=== PATIENT | male | born 1940 | race Caucasian/White ===

== ENCOUNTER 2016-12-15 18:53 | Emergency (ER) | payer OTHER, BC ==
[~2016-12-15] VITALS: Ht 180.3 cm; Wt 97.5 kg
[~2016-12-15 18:53] MED LIST: ATIVAN2 MG PO; COUMADIN5 MG PO; DIOVAN160 MG PO; FORTAMET1000 M1 PO; GLUCOPHAGE1000 MG PO; LO-DOSE ASPIRIN81 M1 PO; NEXIUM40 MG PO; NORVASC2.5 MG PO; PRAVACHOL40 MG PO; TOPROL XL100 MG PO; TOPROL XL50 MG PO
[2016-12-15 19:57] VITALS: BP 154/88
== END 2016-12-15 19:59 | disposition home or self-care (01) ==
LOC: EME 18:53
DX: S60.222A Contusion of left hand, initial encounter (principal); W22.8XXA Striking against or struck by other objects, initial encounter; Z87.891 Personal history of nicotine dependence
CPT/HCPCS: 73130; 99281; 99283

== ENCOUNTER 2017-12-20 07:00 | Day surgery (SDC) | payer OTHER, BC ==
[~2017-12-20] VITALS: Ht 154.9 cm; Wt 90.0 kg
[~2017-12-20 07:00] MED LIST changes: +PRAVACHOL80 MG PO
[2017-12-20 07:40] VITALS: BP 153/99
[2017-12-20 13:40] VITALS: BP 164/88
[2017-12-20 14:33] VITALS: BP 165/88
== END 2017-12-20 14:40 | disposition home or self-care (01) ==
LOC: SDC 07:00
PROVIDERS: Podiatrist Foot & Ankle Surgery
PROC: 0LU Tendons, Supplement (ICD-10-PCS; principal; 2017-12-20)
DX: M66.262 Spontaneous rupture of extensor tendons, left lower leg (principal); M76.812 Anterior tibial syndrome, left leg; M1A.9XX0 Chronic gout, unspecified, without tophus (tophi); E11.42 Type 2 diabetes mellitus with diabetic polyneuropathy; R26.2 Difficulty in walking, not elsewhere classified; E78.5 Hyperlipidemia, unspecified; I10 Essential (primary) hypertension; K21.9 Gastro-esophageal reflux disease without esophagitis; Z87.891 Personal history of nicotine dependence; I48.91 Unspecified atrial fibrillation; Z79.01 Long term (current) use of anticoagulants; Z79.82 Long term (current) use of aspirin; Z79.84 Long term (current) use of oral hypoglycemic drugs
CPT/HCPCS: 82948; 85610; 85730; C1762; J0131; J1100; J2250; J2795; J3010; J7120; Q0175; S0020